=== PATIENT | male | born 1985 | race African-American/Black ===

== ENCOUNTER 2025-04-01 18:01 | Emergency (ER) | payer OTHER, SELFPAY ==
[2025-04-01 18:41] VITALS: BP 114/68; PULSE 76; RESP 18; TEMP 36.6; O2SAT 99; BMI 27.2
== END 2025-04-01 21:03 | disposition left against medical advice (07) ==
PROVIDERS: Emergency Provider Emergency Medicine
CPT/HCPCS: 99281

== ENCOUNTER 2025-05-25 12:05 | Emergency (ER) | payer OTHER, SELFPAY ==
[2025-05-25 12:19] VITALS: BP 166/96; PULSE 72; RESP 16; TEMP 36.9; O2SAT 98; BMI 28.0
--- NOTE | 2025-05-25 14:52 | ED_ITS ---
HPI - Skin/Abscess/Foreign Bdy <Serina Don PA-C - Last Filed: 05/25/25 18:28> General Chief complaint: Skin/Abscess/Foreign Body Stated complaint: Rash on arm and leg Time Seen by Provider: 05/25/25 12:21 History of Present Illness HPI narrative: Mr. Man is a very pleasant 39-year-old male with a past medical history hypertension who presents to the emergency department for a rash on his right leg, arm x5 days. Patient states he is currently visiting the area while working in the [employer]. Before leaving home he was around children who had ringworm however he did not develop any rashes. He noticed 5 days ago however circular scaly rash on his right inner thigh and has since developed a few spots on his right inner arm in his right lower leg as well and 1 spot on his left calf. He has been using [id number]-[id number] Lotrimin which he thinks is making the area get slightly more dry and possibly better. These spots do not itch him. There is no mucous membrane rashes, redness, fevers, blisters. No scalp itching or rash. No medication allergies. Related Data Previous Rx's ?Medication ?Instructions ?Recorded clotrimazole 1 % topical cream 1 applic topical BID 4 weeks #30 05/25/25 grams Allergies Allergy/AdvReac Type Severity Reaction Status Date / Time No Known Drug Allergies Allergy Verified 04/01/25 18:41 Review of Systems <Serina Don PA-C - Last Filed: 05/25/25 18:28> Review of Systems ROS Unobtainable: All systems reviewed & are unremarkable except as noted in HPI and below Exam <Serina Don PA-C - Last Filed: 05/25/25 18:28> Narrative Exam Narrative: GENERAL: 39 year old patient appears stated age. Well-developed patient, in no acute distress. HEAD: Atraumatic. Normocephalic. EYES: No scleral icterus. No injection or drainage. NECK: Trachea midline. Cervical ROM intact. CARDIOVASCULAR: Regular rate RESPIRATORY: ?Nonlabored respirations. ?Speaking in clear, full sentences. ?? NEURO: AOx3. ?Clear speech. ?Moves all 4 extremities appropriately. SKIN: On the right inner thigh there is a 3 cm round well demarcated scaly plaque. There are a few smaller plaques distal to this and there is also about 4 small circular plaques on the right inner arm. 2 mm on the left calf as well. These areas are scaly to touch and somewhat bennett in color. There is no erythema, increased warmth, blistering, petechiae, purpura, or drainage. Initial Vital Signs Initial Vital Signs: Vital Signs Temperature 98.4 F 05/25/25 12:19 Pulse Rate 72 05/25/25 12:19 Respiratory Rate 16 05/25/25 12:19 Blood Pressure 166/96 H 05/25/25 12:19 Pulse Oximetry 98 05/25/25 12:19 Oxygen Delivery Method Room Air 05/25/25 12:19 <Juan Umaña MD - Last Filed: 05/29/25 07:40> Initial Vital Signs Initial Vital Signs: Vital Signs Temperature 98.4 F 05/25/25 12:19 Pulse Rate 72 05/25/25 12:19 Respiratory Rate 16 05/25/25 12:19 Blood Pressure 166/96 H 05/25/25 12:19 Pulse Oximetry 98 05/25/25 12:19 Oxygen Delivery Method Room Air 05/25/25 12:19 Course <Serina Don PA-C - Last Filed: 05/25/25 18:28> Vital Signs Vital signs: Vital Signs - 8 hr 05/25/25 12:19 05/25/25 15:11 Temperature 98.4 F 97.9 F Pulse Rate 72 63 Respiratory Rate 16 16 Blood Pressure 166/96 H 134/92 H Pulse Oximetry 98 100 Oxygen Delivery Method Room Air Room Air <Juan Umaña MD - Last Filed: 05/29/25 07:40> Vital Signs Vital signs: Vital Signs - 8 hr 05/25/25 12:19 05/25/25 15:11 Temperature 98.4 F 97.9 F Pulse Rate 72 63 Respiratory Rate 16 16 Blood Pressure 166/96 H 134/92 H Pulse Oximetry 98 100 Oxygen Delivery Method Room Air Room Air MDM - Skin/Abscess/Foreign Bdy <Serina Don PA-C - Last Filed: 05/25/25 18:28> MDM Narrative Medical decision making narrative: 39-year-old male who presents to the emergency department for a rash on his right leg, arm x5 days. Differential diagnosis includes but is not limited to ringworm/tinea corporis, psoriasis, eczema, etc. On exam patient is in no acute distress, nontoxic appearing, vital signs appropriate except for mildly elevated blood pressure. Patient has a circular scaly rash present on the right inner thigh, arm and left calf. He had an exposure to ringworm. Clinically this does appear to be tinea corporis, espec ially with his recent exposure, we will treat with clotrimazole b.i.d. x4 weeks and ketoconazole body wash twice weekly. I did discuss with the patient that if he is not able to follow up with Dermatology and the rash does not improve with the clotrimazole, to use hydrocortisone instead in the event that this is an inflammatory rash. However also discussed ER return precautions and PCP follow up. He verbalized understanding of all information is happy with the plan. He is ambulatory stable for discharge home. Discharge Plan Departure Patient Disposition: Home Clinical Impression: Tinea corporis Instructions: DI for Ringworm Activity Restrictions/Additional Instructions: Dear Donovan, Thank you for coming to the emergency room. Today you were evaluated for rash which appears to be ringworm. You have been prescribed an antifungal cream to apply to this rash twice a day for the next 4 weeks. I would also like you to get Nizoral shampoo (over the counter, blue bottle) and use this as body wash about twice a week. When you in the shower, lather your body, let it sit for a few minutes, then rinse it off. If the rash does not get better within 2-4 weeks, stop using the clotrimazole and switch over to a topical steroid (hydrocortisone) twice a day for 2 weeks. Please follow up with a processing lead however for further evaluation. Return to the ER immediately if you develop any new or worsening symptoms, fevers, blisters, lesions inside the mouth or other concerns. Please follow up with your primary care doctor within the next 2-3 days for ER follow-up. (If you do not have a PCP you can call [phone]. ?to schedule an appointment with an [facility] Primary Care Provider) IF YOU DEVELOP ANY NEW OR WORSENING SYMPTOMS, RETURN TO THE ER! Please read the attached instructions, they highlight more specific treatments and interventions for you at home. Thank you for letting me participate in your care, Serina C. Arian, PA-C Prescriptions: New clotrimazole 1 % cream 1 applic topical BID 28 Days Qty: 30 0RF Stand Alone Forms: Patient Portal/API ED Sign-out <Juan Umaña MD - Last Filed: 05/29/25 07:40> Cosign ED Attending Cosignature Attestation: I was immediately available in the department for consultation. ?This documentation has been reviewed and I agree with assessment and plan. Supervised by Juan Umaña MD
[2025-05-25 15:11] VITALS: BP 134/92; PULSE 63; RESP 16; TEMP 36.6; O2SAT 100
== END 2025-05-25 15:11 | disposition home or self-care (01) ==
PROVIDERS: Emergency Provider Physician Assistant
DX: B35.4 Tinea corporis (principal)
CPT/HCPCS: 99281